=== PATIENT | female | born 1945 | race Caucasian/White ===

== ENCOUNTER 2024-07-30 20:02 | Inpatient (IN) | payer MEDICARE, BC ==
[2024-07-30 20:55] LABS: #Basophils 0.02 10x3/uL (0.0-0.2); #Eosinophils 0.01 10x3/uL (0.0-0.5); #Monocytes 1.29 10x3/uL (0.0-1.1); #Neutrophils 12.58 10x3/uL (1.5-8.4); %Basophils 0.1 % (0.0-2.0); %Eosinophils 0.1 % (0.0-6.0); %Lymphocytes 12.9 % (18.0-47.0); %Neutrophils 78.3 % (40.0-75.0); Hematocrit 27.1 % (34.9-44.5); Hemoglobin 9.9 g/dL (12.0-15.5); Mean Corpuscular HGB CONC 36.5 g/dL (32.0-36.0); Mean Corpuscular Hemoglobin 32.4 pg (27.0-33.0); Mean Corpuscular Volume 88.6 fL (81.6-98.3); Platelet Count 222 10x3/uL (150-450); RBC Distribution Width 12.4 % (11.5-14.5); Red Blood Cell (RBC) Count 3.06 10x6/uL (3.90-5.03); White Blood Cell (WBC) Count 16.1 10x3/uL (3.5-10.5)
[2024-07-30 21:09] LABS: ALT (SGPT) 14 U/L (8-55); AST (SGOT) 18 U/L (5-34); Albumin 2.4 g/dL (3.4-4.8); Alkaline Phosphatase 51 U/L (40-110); Anion Gap 19 mmol/L (10-20); BUN (Urea Nitrogen) 45 mg/dL (9.8-20.1); Bilirubin, Total 0.4 mg/dL (0.2-1.2); Calc. Creatinine Clearance 0 mL/min (70-130); Calcium 7.7 mg/dL (7.8-10.44); Carbon Dioxide 21 mmol/L (23-31); Chloride 96 mmol/L (98-107); Estimated GFR 89; Globulin 2.4 g/dL (2.4-3.5); Glucose 324 mg/dL (83-110); Potassium 3.9 mmol/L (3.5-5.1); Protein, Total 4.8 g/dL (5.8-8.1); Sodium 132 mmol/L (136-145)
[2024-07-30 21:12] LABS: Troponin I Less than 0.010 ng/mL (< 0.028)
[2024-07-30 23:06] LABS: Bilirubin Neg (Negative); Blood, Urine Negative (Negative); Clarity Clear (Clear); Glucose, Urine (Dipstick) >=1000 mg/dL (Negative); Ketone, Urine 150 mg/dL (Negative); Leukocyte Negative (Negative); Nitrite Negative (Negative); Protein, Urine (Dipstick) Negative (Neg-Trace); Urobilinogen Normal mg/dL (Less than 2)
[2024-07-30 23:21] LABS: CAUTI Indications for Culture Alt mental st,lethar; RBC/HPF None Seen HPF (0-3); Squamous Epithelial 0-3 HPF (0-3); WBC/HPF 0-3 HPF (0-3)
[2024-07-30 23:22] LABS: Bacteria/HPF 1+ HPF (None Seen)
[2024-07-30 23:24] LABS: Urine Culture Reflex No No
[2024-07-30] MEDS ORDERED: Dextrose 5% in Water 1,000 ML IV PRN (23:58)
[2024-07-30] MEDS ORDERED: Acetaminophen 650 MG Suppository PR PRN (23:58)
[2024-07-30] MEDS ORDERED: Dextrose 50% Abboject 50 ML SYRINGE SLOW IVP PRN (23:58)
[2024-07-30] MEDS ORDERED: Glucagon 1 MG/ML KIT IM PRN (23:58)
[2024-07-31 01:53] VITALS: BMI 25.7
[2024-07-31] MEDS: Insulin Lispro 100 UNIT/ML 10 ML VIAL SC PRN (02:14)
[2024-07-31] MEDS: Sodium Chloride 0.9% 1,000 ML IV SCH ×2 (02:14→03:29)
[2024-07-31 04:41] LABS: #Basophils 0.01 10x3/uL (0.0-0.2); #Eosinophils 0.01 10x3/uL (0.0-0.5); #Monocytes 1.11 10x3/uL (0.0-1.1); #Neutrophils 8.38 10x3/uL (1.5-8.4); %Basophils 0.1 % (0.0-2.0); %Eosinophils 0.1 % (0.0-6.0); %Lymphocytes 18.8 % (18.0-47.0); %Monocytes 9.4 % (0.0-10.0); %Neutrophils 70.9 % (40.0-75.0); Hemoglobin 8.2 g/dL (12.0-15.5); Mean Corpuscular HGB CONC 37.3 g/dL (32.0-36.0); Mean Corpuscular Hemoglobin 32.7 pg (27.0-33.0); Mean Corpuscular Volume 87.6 fL (81.6-98.3); Mean Platelet Volume 11.3 fL (7.4-10.4); Platelet Count 183 10x3/uL (150-450); RBC Distribution Width 12.3 % (11.5-14.5); Red Blood Cell (RBC) Count 2.51 10x6/uL (3.90-5.03); White Blood Cell (WBC) Count 11.8 10x3/uL (3.5-10.5)
[2024-07-31 04:53] LABS: Anion Gap 14 mmol/L (10-20); BUN (Urea Nitrogen) 38 mg/dL (9.8-20.1); Calc. Creatinine Clearance 91 mL/min (70-130); Carbon Dioxide 21 mmol/L (23-31); Chloride 103 mmol/L (98-107); Estimated GFR 94; Glucose 203 mg/dL (83-110); Potassium 2.8 mmol/L (3.5-5.1); Sodium 135 mmol/L (136-145)
[2024-07-31 05:01] LABS: Calcium 6.9 mg/dL (7.8-10.44); Critical Call Chemistry NUR.SR7 @0500
[2024-07-31] MEDS: Acetaminophen 325 MG TAB PO PRN (05:28)
[2024-07-31] MEDS: Potassium Chloride 20 MEQ in Premix 1 BAG IVPB SCH (06:12)
[2024-07-31 08:11] LABS: Iron 65 ug/dL (50-170); Iron Binding Capacity, Total 165 mcg/dL (265-497)
[2024-07-31] MEDS: Ondansetron PF 4 MG/2 ML Vial IVP PRN (08:21)
[2024-07-31] MEDS: Enoxaparin 40 MG (0.4 mL) SYRINGE SC SCH (08:21)
[2024-07-31] MEDS: FLU (Fluad Triv) TS24-25 (65UP)/MF59C/PF 45 MCG/0.5 ML Syringe IM ONE (08:31)
[2024-07-31] MEDS: Pantoprazole 40 MG VIAL IVP SCH ×2 (10:49→21:08)
[2024-07-31 12:53] VITALS: BMI 25.7
[2024-07-31 19:35] LABS: Anion Gap 18 mmol/L (10-20); BUN (Urea Nitrogen) 31 mg/dL (9.8-20.1); Calc. Creatinine Clearance 84 mL/min (70-130); Calcium 7.2 mg/dL (7.8-10.44); Carbon Dioxide 17 mmol/L (23-31); Chloride 105 mmol/L (98-107); Estimated GFR 92; Glucose 191 mg/dL (83-110); Potassium 3.5 mmol/L (3.5-5.1); Sodium 136 mmol/L (136-145)
[2024-07-31 19:41] LABS: Hemoglobin 7.8 g/dL (12.0-15.5)
[2024-07-31] MEDS: Rosuvastatin 10 MG TAB PO SCH (21:07)
[2024-07-31] MEDS: diphenhydrAMINE 50 MG/ML VIAL IVP SCH (23:34)
[2024-08-01 04:47] VITALS: TEMP 97.1
[2024-08-01 05:07] LABS: #Basophils 0.03 10x3/uL (0.0-0.2); #Eosinophils 0.08 10x3/uL (0.0-0.5); #Monocytes 1.11 10x3/uL (0.0-1.1); #Neutrophils 6.95 10x3/uL (1.5-8.4); %Basophils 0.3 % (0.0-2.0); %Eosinophils 0.7 % (0.0-6.0); %Monocytes 9.5 % (0.0-10.0); %Neutrophils 59.7 % (40.0-75.0); Hemoglobin 9.2 g/dL (12.0-15.5); Mean Corpuscular HGB CONC 35.4 g/dL (32.0-36.0); Mean Corpuscular Hemoglobin 30.9 pg (27.0-33.0); Mean Corpuscular Volume 87.2 fL (81.6-98.3); Mean Platelet Volume 10.8 fL (7.4-10.4); Platelet Count 191 10x3/uL (150-450); RBC Distribution Width 14.1 % (11.5-14.5); Red Blood Cell (RBC) Count 2.98 10x6/uL (3.90-5.03); White Blood Cell (WBC) Count 11.6 10x3/uL (3.5-10.5)
[2024-08-01 05:19] LABS: Anion Gap 14 mmol/L (10-20); BUN (Urea Nitrogen) 24 mg/dL (9.8-20.1); Calc. Creatinine Clearance 83 mL/min (70-130); Calcium 7.3 mg/dL (7.8-10.44); Carbon Dioxide 20 mmol/L (23-31); Chloride 107 mmol/L (98-107); Estimated GFR 92; Glucose 158 mg/dL (83-110); Potassium 3.6 mmol/L (3.5-5.1); Sodium 137 mmol/L (136-145)
[2024-08-01] MEDS: Pantoprazole 40 MG VIAL IVP SCH (08:10)
[2024-08-01 08:17] LABS: Hematocrit 23.6 % (34.9-44.5); Hemoglobin 8.3 g/dL (12.0-15.5)
[2024-08-01] MEDS ORDERED: Pantoprazole 40 MG VIAL IVP SCH ×2 (09:00)
[2024-08-01] MEDS ORDERED: Cyanocobalamin 1000 MCG/ML VIAL IM SCH (09:00)
[2024-08-01] MEDS ORDERED: PROPOFOL 20 ML ONE ×2 (10:56)
[2024-08-01] MEDS ORDERED: Rocuronium Bromide 10 MG/ML (10ML VIAL) ONE (11:17)
[2024-08-01] MEDS ORDERED: EPINEPHrine 1 MG/10 ML Abboject SYRINGE ONE (11:29)
[2024-08-01] MEDS ORDERED: SUGAMMADEX SODIUM 200 MG/2 ML VIAL ONE (11:30)
[2024-08-01] MEDS: Sodium Chloride 0.9% 1,000 ML IV SCH (12:51)
[2024-08-01] MEDS: Potassium Chloride 20 MEQ in Premix 1 BAG IVPB SCH (17:02)
[2024-08-02 04:51] VITALS: BP 115/50
== END 2024-08-01 20:35 | disposition short-term general hospital (02) | DRG 640 ==
LOC: SUATTDRO 20:02 → CSHERS 20:02 → CSHTELE 23:58 → OBSVTOIN 07-31 12:22
PROVIDERS: ADMIT Family Medicine; ATTEND Internal Medicine
PROC: 0HQ1XZZ Repair Face Skin, External Approach (ICD-10-PCS; 2024-07-31)
PROC: 0DB68ZX Excision of Stomach, Via Natural or Artificial Opening Endoscopic, Diagnostic (ICD-10-PCS; principal; 2024-08-01)
PROC: 0W3P8ZZ Control Bleeding in Gastrointestinal Tract, Via Natural or Artificial Opening Endoscopic (ICD-10-PCS; 2024-08-01)
DX: E86.0 Dehydration (principal); K26.4 Chronic or unspecified duodenal ulcer with hemorrhage; S72.122A Displaced fracture of lesser trochanter of left femur, initial encounter for closed fracture; D62 Acute posthemorrhagic anemia; E44.0 Moderate protein-calorie malnutrition; M97.02XA Periprosthetic fracture around internal prosthetic left hip joint, initial encounter; E87.6 Hypokalemia; K29.70 Gastritis, unspecified, without bleeding; I11.0 Hypertensive heart disease with heart failure; I50.9 Heart failure, unspecified; E11.65 Type 2 diabetes mellitus with hyperglycemia; I25.10 Atherosclerotic heart disease of native coronary artery without angina pectoris; E78.5 Hyperlipidemia, unspecified; Z96.643 Presence of artificial hip joint, bilateral; Z96.653 Presence of artificial knee joint, bilateral; K62.89 Other specified diseases of anus and rectum; W19.XXXA Unspecified fall, initial encounter; M19.90 Unspecified osteoarthritis, unspecified site; Z95.5 Presence of coronary angioplasty implant and graft; Z90.49 Acquired absence of other specified parts of digestive tract; Z68.25 Body mass index [BMI] 25.0-25.9, adult; Z79.01 Long term (current) use of anticoagulants; Z79.899 Other long term (current) drug therapy; Z79.4 Long term (current) use of insulin; Y93.89 Activity, other specified; Y92.89 Other specified places as the place of occurrence of the external cause; Z88.5 Allergy status to narcotic agent
CPT/HCPCS: 12011; 36415; 36416; 36430; 70450; 70486; 72125; 80048; 80053; 81001; 82274; 82607; 83036; 83540; 83550; 83880; 84443; 84484; 85025; 85046; 86850; 86900; 86901; 88305; 93005; 93010; 94760; 94762; A4215; G0378; J1200; J1650; J1815; J2405; J2470; J2704; J3480; J7030; P9016